=== PATIENT | male | born 1940 | race Caucasian/White ===

== ENCOUNTER 2021-06-28 06:50 | Emergency (ER) | payer MEDICARE, OTHER ==
[~2021-06-28] VITALS: Ht 170.2 cm; Wt 75.7 kg
--- NOTE | 2021-06-28 06:50 | NUR ---
TRACI MEDINA VIA W/C TO BED 09.
[2021-06-28 07:00] VITALS: BP 144/70
[2021-06-28] MEDS ORDERED: ACETAMINOPHEN EXTRA STRENGTH 500 MG TAB PO ONE (07:05)
--- NOTE | 2021-06-28 07:24 | NUR ---
PT TAKEN TO XRAY VIA W/C
--- NOTE | 2021-06-28 07:26 | NUR ---
PATIENT LEFT FOR XRAY
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
--- NOTE | 2021-06-28 07:34 | NUR ---
PT BACK FROM RAD
--- NOTE | 2021-06-28 07:52 | NUR ---
DR LANDIN AT BEDSIDE.
[2021-06-28 07:59] VITALS: BP 144/70
--- NOTE | 2021-06-28 07:59 | NUR ---
Patient discharged with v/s stable. Written and verbal after care instructions given and explained. Patient alert, oriented and verbalized understanding of instructions. Ambulatory with steady gait. All questions addressed prior to discharge. ID band removed. Patient advised to follow up with PMD. Opportunity to ask questions provided and answered.
== END 2021-06-28 07:59 | disposition home or self-care (01) ==
LOC: MED 06:50
DX: M54.6 Pain in thoracic spine (principal); M79.604 Pain in right leg; I10 Essential (primary) hypertension; V03.90XA Pedestrian on foot injured in collision with car, pick-up truck or van, unspecified whether traffic or nontraffic accident, initial encounter; Y93.01 Activity, walking, marching and hiking; Y92.89 Other specified places as the place of occurrence of the external cause; Y99.8 Other external cause status
CPT/HCPCS: 72072; 99283